=== PATIENT | female | born 1970 ===

== ENCOUNTER 2017-04-07 23:40 | Emergency (ER) | payer SELFPAY ==
[~2017-04-07] VITALS: Ht 162.6 cm; Wt 70.0 kg
[2017-04-08 00:10] VITALS: Ht 162.6 cm; Wt 70.0 kg
== END 2017-04-08 03:45 | disposition left against medical advice (07) ==
LOC: E/R 23:40
DX: Z53.21 Procedure and treatment not carried out due to patient leaving prior to being seen by health care provider (principal)